=== PATIENT | male | born 1960 | race Two or more races ===

== ENCOUNTER 2022-11-30 20:47 | Emergency (ER) | payer OTHER ==
[~2022-11-30] VITALS: Ht 175.3 cm; Wt 74.8 kg
[2022-11-30 20:52] VITALS: BP 116/65
[2022-12-01] MEDS ORDERED: ESCI10TA PO (04:06)
[2022-12-01] MEDS ORDERED: KETO10TA2 PO (04:06)
[2022-12-01] MEDS ORDERED: ESCITALOPRAM OXALATE (10 MG) 10 MG TABLET ONE (04:09)
--- NOTE | 2022-12-01 04:13 | NUR ---
Patient discharged to home in stable condition. Written and verbal after care instructions given. Patient verbalizes understanding of instruction. Pt ambulatory with a steady gait
[2022-12-01] MEDS ORDERED: ESCITALOPRAM OXALATE (10 MG) 10 MG TABLET PO ONE (04:30)
[2022-12-01] MEDS ORDERED: IBUPROFEN 400 MG TABLET PO ONE (04:30)
== END 2022-12-01 04:14 | disposition home or self-care (01) ==
LOC: ER 20:52
DX: F41.9 Anxiety disorder, unspecified (principal); Z60.2 Problems related to living alone

== ENCOUNTER 2022-12-01 06:27 | Emergency (ER) | payer OTHER ==
[~2022-12-01] VITALS: Ht 175.3 cm; Wt 74.8 kg
[~2022-12-01 06:27] MED LIST: ESCI10TA PO; KETO10TA2 PO
[2022-12-01 06:35] VITALS: BP 108/63
== END 2022-12-01 07:06 | disposition home or self-care (01) ==
LOC: ER 06:29
DX: F41.9 Anxiety disorder, unspecified (principal); F32.A Depression, unspecified; Z60.2 Problems related to living alone